=== PATIENT | female | born 1980 | race Caucasian/White ===

== ENCOUNTER → 2016-12-09 | Outpatient (CLI) | payer BC ==
[~2016-12-09] MED LIST: MISCCAP80 PO; SENNA TEA PO
--- NOTE | 2016-12-09 10:47 | DIAGNOSTIC IMAGING REPORT ---
PELVIC ULTRASOUND, TRANSABDOMINAL AND TRANSVAGINAL HISTORY: oligomenorrhea COMPARISON: Abdomen and pelvis CT 06/08/2016. FINDINGS: Uterus: 7.2 x 3.4 x 3.6 cm. No uterine masses. Endometrial stripe: 2 mm in thickness. Right ovary: Normal in size and demonstrates normal color flow. Left ovary: Obscured by overlying bowel gas. Miscellaneous:No pelvic free fluid. IMPRESSION: The left ovary was obscured by overlying bowel gas. Otherwise, normal pelvic ultrasound. Electronically signed by: Peng Fajardo M.D. 12/09/2016 10:46 AM Dictated Date/Time: 12/09/2016 10:44 AM
== END | disposition home or self-care (01) ==
LOC: C.ULTR 09:22
PROVIDERS: ATTEND Nurse Practitioner Family
DX: N91.5 Oligomenorrhea, unspecified (principal); R10.2 Pelvic and perineal pain